=== PATIENT | female | born 1950 | race African-American/Black ===

== ENCOUNTER 2023-07-12 17:21 | Inpatient (IN) | payer OTHER ==
[~2023-07-12] VITALS: Ht 165.1 cm; Wt 70.8 kg
[2023-07-12 17:45] VITALS: PULSE 103; RESP 32; O2SAT 91
[2023-07-12] MEDS ORDERED: IPRATROPIUM BROM 0.5 MG/2.5ML INH SOL NEB ONE ×2 (18:00→18:30)
[2023-07-12] MEDS ORDERED: ALBUTEROL SULF 2.5 MG/0.5ML(0.5%) NEB SOLN NEB ONE ×3 (18:00→21:00)
[2023-07-12 18:12] LABS: Eosinophils # (auto) 0 10 ^3/uL (0-0.8); Hemoglobin 13.5 g/dL (12.2-16.2); Neutrophils # (auto) 8.7 10 ^3/uL (1.6-8.6)
[2023-07-12 18:15] LABS: Basophils # (auto) 0.1 10 ^3/uL (0-0.2); Eosinophils % (auto) 0.2 % (0.0-7.0); Hematocrit 43.5 % (36.0-46.0); Lymphocytes # (auto) 1.2 10 ^3/uL (0.4-5.4); Lymphocytes % (auto) 11.3 % (10.0-50.0); Mean Corpuscular Hemoglobin 22.8 pg (28.0-32.0); Mean Corpuscular Hgb Conc. 31.1 g/dL (32.0-36.0); Mean Corpuscular Volume 73.5 fL (80.0-100.0); Monocytes # (auto) 0.5 10 ^3/uL (0-1.3); Monocytes % (auto) 5.1 % (0.0-12.0); Neutrophils % (auto) 82.4 % (37.0-80.0); Nucleated Red Blood Cells % 0.9 %; Red Blood Cells 5.92 10^6/uL (4.0-5.20); Red Cell Distribution Width 19.4 % (11.8-14.3); White Blood Cell 10.5 10^3/uL (4.4-10.8)
[2023-07-12 18:29] LABS: Alanine Aminotransferase 61 U/L (7-40); Albumin 5.1 g/dL (3.2-4.8); Alkaline Phosphatase 130 U/L (46-116); Anion Gap 12 (5-15); Aspartate Aminotransferase 28 U/L (13-40); BUN/Creatinine Ratio 11.4 (10.0-20.0); Blood Urea Nitrogen 21 mg/dL (9-23); Calcium 9.5 mg/dL (8.7-10.4); Carbon Dioxide 23 mmol/L (20-30); Chloride 107 mmol/L (98-107); Glucose 126 mg/dL (74-106); Magnesium 1.9 mg/dL (1.6-2.6); Potassium 3.7 mmol/L (3.5-5.1); Sodium 142 mmol/L (136-145)
[2023-07-12 18:30] LABS: Bilirubin, Total 0.8 mg/dL (0.2-1.0); Total Protein 7.1 g/dL (5.7-8.2)
[2023-07-12] MEDS ORDERED: cefTRIAXone 1GM/50ML D5W 50 ML IV ONE (18:30)
[2023-07-12] MEDS ORDERED: DexAMETHasone SOD PHOS 10MG/1ML VIAL INJ IV ONE (18:30)
[2023-07-12 18:57] LABS: INR 1.09 (0.9-1.15); Partial Thromboplastin Time 25.6 SEC (24.5-34.5); Prothrombin Time 11.4 sec (9.3-11.8)
[2023-07-12 19:30] VITALS: PULSE 105; RESP 20; O2SAT 93
[2023-07-12] MEDS ORDERED: FUROSEMIDE 40 MG/4 ML VIAL IV ONE (20:45)
[2023-07-12] MEDS ORDERED: ALBUTEROL SULF 2.5 MG/0.5ML(0.5%) NEB SOLN NEB PRN (22:30)
[2023-07-12] MEDS ORDERED: ONDANSETRON HCL 4 MG/2 ML VIAL IV PRN (22:30)
[2023-07-12] MEDS ORDERED: DOCUSATE SOD 100 MG CAP PO PRN (22:30)
[2023-07-12] MEDS ORDERED: IPRATROPIUM BROM 0.5 MG/2.5ML INH SOL NEB PRN (22:30)
[2023-07-12] MEDS ORDERED: ACETAMINOPHEN 325 MG TAB PO PRN (22:30)
[2023-07-12] MEDS ORDERED: NITROGLYCERIN 0.4 MG SL TAB SL PRN (23:30)
[2023-07-12] MEDS ORDERED: MORPHINE SULFATE INJ 2 MG/ml SYRG IV PRN (23:30)
[2023-07-13] VITALS (14 sets, daily range): BP systolic 107–146; BP diastolic 62–99; PULSE 54–111; RESP 16–22; TEMP 95.5–98.7; O2SAT 90–99
[2023-07-13 04:40] LABS: Urine Bacteria NONE SEEN /hpf (None Seen); Urine Blood Negative /uL (Negative); Urine Clarity Clear (Clear); Urine Color Yellow (Yellow); Urine Hyaline Cast FEW /lpf (0 - 2); Urine Protein, UAD Negative (Negative); Urine Specific Gravity 1.011 (1.001-1.035); Urine Urobilinogen Normal (Negative); Urine WBC <1 /hpf (0 - 5)
[2023-07-13] MEDS: SODIUM CHLOR 0.9% PF (SALINE LOCK) 10ML VIAL/SYR IV SCH ×3 (05:30→21:35)
[2023-07-13 07:07] LABS: Basophils # (auto) 0 10 ^3/uL (0-0.2); Basophils % (auto) 0.5 % (0.0-2.0); Eosinophils # (auto) 0 10 ^3/uL (0-0.8); Hematocrit 39.8 % (36.0-46.0); Hemoglobin 12.4 g/dL (12.2-16.2); Lymphocytes # (auto) 0.5 10 ^3/uL (0.4-5.4); Lymphocytes % (auto) 7.6 % (10.0-50.0); Mean Corpuscular Hgb Conc. 31.1 g/dL (32.0-36.0); Monocytes # (auto) 0.2 10 ^3/uL (0-1.3); Monocytes % (auto) 2.2 % (0.0-12.0); Neutrophils # (auto) 6.3 10 ^3/uL (1.6-8.6); Neutrophils % (auto) 89.7 % (37.0-80.0); Nucleated Red Blood Cells % 0.9 %; Red Blood Cells 5.38 10^6/uL (4.0-5.20); Red Cell Distribution Width 18.8 % (11.8-14.3)
[2023-07-13 07:33] LABS: Alanine Aminotransferase 47 U/L (7-40); Albumin 4.5 g/dL (3.2-4.8); Alkaline Phosphatase 110 U/L (46-116); Anion Gap 10 (5-15); Aspartate Aminotransferase 22 U/L (13-40); BUN/Creatinine Ratio 10.7 (10.0-20.0); Blood Urea Nitrogen 21 mg/dL (9-23); Calcium 8.6 mg/dL (8.7-10.4); Carbon Dioxide 25 mmol/L (20-30); Chloride 110 mmol/L (98-107); Glucose 210 mg/dL (74-106); Potassium 3.8 mmol/L (3.5-5.1); Sodium 145 mmol/L (136-145)
[2023-07-13 07:34] LABS: Bilirubin, Total 0.4 mg/dL (0.2-1.0); Total Protein 6.5 g/dL (5.7-8.2)
[2023-07-13] MEDS ORDERED: DexAMETHasone SOD PHOS 10MG/1ML VIAL INJ IV SCH (10:00)
[2023-07-13] MEDS ORDERED: ATORVASTATIN 20 MG TAB PO ONE (11:30)
[2023-07-13] MEDS: CARVEDILOL 3.125 MG TAB PO SCH ×2 (11:37→21:43)
[2023-07-13] MEDS: FUROSEMIDE 40 MG/4 ML VIAL IV SCH (11:37)
[2023-07-13] MEDS: ASPirin 81 mg TAB PO SCH (11:37)
[2023-07-13] MEDS: HYDROcodone-ACET 5/325MG TAB PO PRN ×2 (11:55→21:40)
[2023-07-13] MEDS: IPRATROPIUM BROM 0.5 MG/2.5ML INH SOL NEB SCH ×2 (12:00→19:01)
[2023-07-13] MEDS: ALBUTEROL SULF 2.5 MG/0.5ML(0.5%) NEB SOLN NEB SCH ×2 (12:00→19:02)
[2023-07-13 12:39] LABS: LDL Cholesterol 22 mg/dL (< 100); Triglycerides 44 mg/dL (< 150)
[2023-07-13 12:41] LABS: Cholesterol 90 mg/dL (< 200); HDL Cholesterol 55 mg/dL (40-59)
[2023-07-13 15:01] LABS: COVID19 ANTIGEN SOFIA FIA NEGATIVE (NEGATIVE)
[2023-07-13 15:02] LABS: Rapid Influenza A Negative (Negative); Rapid Influenza B Negative (Negative)
[2023-07-13] MEDS ORDERED: MIRT1TAB38 PO (15:50)
[2023-07-13] MEDS ORDERED: HYDR-4297 PO (15:52)
[2023-07-13] MEDS ORDERED: VENL1TAB97 PO (15:55)
[2023-07-13] MEDS ORDERED: FURO20TA3 PO (16:01)
[2023-07-13] MEDS ORDERED: AMLO1TAB22 PO (16:01)
[2023-07-13] MEDS ORDERED: LEVO88CA3 PO (16:01)
[2023-07-13] MEDS ORDERED: ASPI-498 PO (16:01)
[2023-07-13] MEDS ORDERED: LOSA50TA46 PO (16:01)
[2023-07-13] MEDS ORDERED: BUPR-133 PO (16:01)
[2023-07-13] MEDS ORDERED: ANAS1TAB7 PO (16:01)
[2023-07-13] MEDS ORDERED: ATOR40TA52 PO (16:01)
[2023-07-13] MEDS ORDERED: TIOT1AER IN (16:03)
[2023-07-13] MEDS ORDERED: FLUT50SP (16:03)
[2023-07-13] MEDS: ATORVASTATIN 20 MG TAB PO SCH (21:42)
[2023-07-13] MEDS ORDERED: cefTRIAXone 1GM/50ML D5W 50 ML IV SCH (22:00)
[2023-07-14] VITALS (14 sets, daily range): BP systolic 103–134; BP diastolic 60–86; PULSE 90–108; RESP 16–20; TEMP 97.9–98.3; O2SAT 89–99
[2023-07-14 05:55] LABS: Alanine Aminotransferase 57 U/L (7-40); Albumin 4.2 g/dL (3.2-4.8); Alkaline Phosphatase 101 U/L (46-116); Anion Gap 7 (5-15); Aspartate Aminotransferase 30 U/L (13-40); BUN/Creatinine Ratio 18.6 (10.0-20.0); Blood Urea Nitrogen 27 mg/dL (9-23); Carbon Dioxide 26 mmol/L (20-30); Chloride 109 mmol/L (98-107); Glucose 117 mg/dL (74-106); Potassium 4.1 mmol/L (3.5-5.1); Sodium 142 mmol/L (136-145)
[2023-07-14 05:56] LABS: Bilirubin, Total 0.4 mg/dL (0.2-1.0)
[2023-07-14] MEDS: SODIUM CHLOR 0.9% PF (SALINE LOCK) 10ML VIAL/SYR IV SCH ×3 (06:51→21:27)
[2023-07-14] MEDS: ALBUTEROL SULF 2.5 MG/0.5ML(0.5%) NEB SOLN NEB SCH ×3 (07:34→18:52)
[2023-07-14] MEDS: IPRATROPIUM BROM 0.5 MG/2.5ML INH SOL NEB SCH ×3 (07:34→18:52)
[2023-07-14 08:55] LABS: Basophils # (auto) 0 10 ^3/uL (0-0.2); Eosinophils # (auto) 0 10 ^3/uL (0-0.8); Hemoglobin 11.5 g/dL (12.2-16.2); Monocytes # (auto) 0.7 10 ^3/uL (0-1.3); White Blood Cell 10.4 10^3/uL (4.4-10.8)
[2023-07-14 08:56] LABS: Basophils % (auto) 0.4 % (0.0-2.0); Hematocrit 37.6 % (36.0-46.0); Lymphocytes # (auto) 1.3 10 ^3/uL (0.4-5.4); Lymphocytes % (auto) 12.6 % (10.0-50.0); Mean Corpuscular Hemoglobin 22.7 pg (28.0-32.0); Mean Corpuscular Hgb Conc. 30.7 g/dL (32.0-36.0); Neutrophils # (auto) 8.3 10 ^3/uL (1.6-8.6); Nucleated Red Blood Cells % 1.2 %; Red Blood Cells 5.08 10^6/uL (4.0-5.20); Red Cell Distribution Width 18.9 % (11.8-14.3)
[2023-07-14] MEDS: ASPirin 81 mg TAB PO SCH (09:49)
[2023-07-14] MEDS: HYDROcodone-ACET 5/325MG TAB PO PRN (09:49)
[2023-07-14] MEDS: ALPRAZolam 0.25 MG TAB PO PRN (09:49)
[2023-07-14] MEDS: CARVEDILOL 3.125 MG TAB PO SCH ×2 (09:50→21:25)
[2023-07-14] MEDS: FUROSEMIDE 40 MG/4 ML VIAL IV SCH (09:51)
[2023-07-14 09:55] LABS: Hypochromia Moderate; Platelet Estimate Adequate
[2023-07-14 09:56] LABS: Ovalocytes MODERATE; Tear Drop Cells FEW
[2023-07-14] MEDS: ATORVASTATIN 20 MG TAB PO SCH (21:25)
[2023-07-15] VITALS (15 sets, daily range): BP systolic 108–115; BP diastolic 68–80; PULSE 91–111; RESP 14–24; TEMP 97–98.5; O2SAT 15–98
[2023-07-15] MEDS: SODIUM CHLOR 0.9% PF (SALINE LOCK) 10ML VIAL/SYR IV SCH ×3 (06:12→21:19)
[2023-07-15] MEDS: IPRATROPIUM BROM 0.5 MG/2.5ML INH SOL NEB SCH ×4 (06:17→21:58)
[2023-07-15] MEDS: ALBUTEROL SULF 2.5 MG/0.5ML(0.5%) NEB SOLN NEB SCH ×4 (06:17→21:58)
[2023-07-15] MEDS: FUROSEMIDE 40 MG/4 ML VIAL IV SCH (10:14)
[2023-07-15] MEDS: ASPirin 81 mg TAB PO SCH (10:15)
[2023-07-15] MEDS: CARVEDILOL 3.125 MG TAB PO SCH ×2 (10:15→21:13)
[2023-07-15] MEDS ORDERED: ALBUTEROL SULF 2.5 MG/0.5ML(0.5%) NEB SOLN NEB SCH (11:45)
[2023-07-15] MEDS ORDERED: IPRATROPIUM BROM 0.5 MG/2.5ML INH SOL NEB SCH (11:45)
[2023-07-15 12:52] LABS: Base Excess 3.7 mmol/L (-2.0-2.0)
[2023-07-15 13:51] LABS: Chloride 108 mmol/L (98-107); Potassium 3.8 mmol/L (3.5-5.1); Sodium 144 mmol/L (136-145)
[2023-07-15 13:52] LABS: Anion Gap 4 (5-15); Carbon Dioxide 32 mmol/L (20-30)
[2023-07-15 13:53] LABS: Calcium 8.6 mg/dL (8.7-10.4)
[2023-07-15 13:57] LABS: Glucose 117 mg/dL (74-106)
[2023-07-15 13:58] LABS: BUN/Creatinine Ratio 14.8 (10.0-20.0); Blood Urea Nitrogen 21 mg/dL (9-23)
[2023-07-15] MEDS ORDERED: MAGNESIUM SULFATE 1GM/100ML 100 ML IV ONE (14:00)
[2023-07-15] MEDS: methylPREDNISolone SOD SUCC 40 MG/ML VL IV SCH ×2 (15:00→21:15)
[2023-07-15] MEDS: MAGNESIUM SULFATE 1GM/100ML 100 ML IV SCH ×2 (16:20→18:00)
[2023-07-15] MEDS: ATORVASTATIN 20 MG TAB PO SCH (21:13)
[2023-07-16] VITALS (30 sets, daily range): BP systolic 113–130; BP diastolic 64–91; PULSE 74–115; RESP 9–24; TEMP 97.9–99; O2SAT 76–100
[2023-07-16] MEDS: ALBUTEROL SULF 2.5 MG/0.5ML(0.5%) NEB SOLN NEB SCH ×6 (01:16→22:42)
[2023-07-16] MEDS: IPRATROPIUM BROM 0.5 MG/2.5ML INH SOL NEB SCH ×6 (01:16→22:42)
[2023-07-16] MEDS: SODIUM CHLOR 0.9% PF (SALINE LOCK) 10ML VIAL/SYR IV SCH ×3 (06:14→22:14)
[2023-07-16 06:22] LABS: Eosinophils # (auto) 0 10 ^3/uL (0-0.8); Mean Corpuscular Hemoglobin 22.7 pg (28.0-32.0); Monocytes # (auto) 0.2 10 ^3/uL (0-1.3); Nucleated Red Blood Cells % 0.1 %; Red Cell Distribution Width 19.4 % (11.8-14.3); White Blood Cell 12.5 10^3/uL (4.4-10.8)
[2023-07-16 06:25] LABS: Basophils # (auto) 0.1 10 ^3/uL (0-0.2); Basophils % (auto) 0.5 % (0.0-2.0); Hemoglobin 12.9 g/dL (12.2-16.2); Lymphocytes # (auto) 0.7 10 ^3/uL (0.4-5.4); Lymphocytes % (auto) 5.8 % (10.0-50.0); Mean Corpuscular Hgb Conc. 30.8 g/dL (32.0-36.0); Mean Corpuscular Volume 73.7 fL (80.0-100.0); Monocytes % (auto) 1.9 % (0.0-12.0); Neutrophils # (auto) 11.5 10 ^3/uL (1.6-8.6); Neutrophils % (auto) 91.8 % (37.0-80.0); Red Blood Cells 5.69 10^6/uL (4.0-5.20)
[2023-07-16 06:41] LABS: Anion Gap 5 (5-15); Calcium 8.5 mg/dL (8.7-10.4); Carbon Dioxide 29 mmol/L (20-30); Chloride 108 mmol/L (98-107); Potassium 4.4 mmol/L (3.5-5.1); Sodium 142 mmol/L (136-145)
[2023-07-16 06:47] LABS: BUN/Creatinine Ratio 16.4 (10.0-20.0); Blood Urea Nitrogen 20 mg/dL (9-23); Glucose 145 mg/dL (74-106)
[2023-07-16] MEDS: FUROSEMIDE 40 MG/4 ML VIAL IV SCH ×3 (10:55→18:03)
[2023-07-16] MEDS: ALPRAZolam 0.25 MG TAB PO PRN (10:56)
[2023-07-16] MEDS: ASPirin 81 mg TAB PO SCH (10:56)
[2023-07-16] MEDS: CARVEDILOL 3.125 MG TAB PO SCH ×2 (10:56→22:15)
[2023-07-16] MEDS: methylPREDNISolone SOD SUCC 40 MG/ML VL IV SCH ×2 (10:57→22:14)
[2023-07-16 12:42] LABS: Base Excess 1.1 mmol/L (-2.0-2.0)
[2023-07-16 14:38] LABS: Base Excess 4.1 mmol/L (-2.0-2.0)
[2023-07-16] MEDS: ATORVASTATIN 20 MG TAB PO SCH (22:15)
[2023-07-17] VITALS (24 sets, daily range): BP systolic 112–149; BP diastolic 67–97; PULSE 89–194; RESP 10–22; TEMP 97.6–98.9; O2SAT 88–100
[2023-07-17] MEDS: IPRATROPIUM BROM 0.5 MG/2.5ML INH SOL NEB SCH ×6 (02:51→21:37)
[2023-07-17] MEDS: ALBUTEROL SULF 2.5 MG/0.5ML(0.5%) NEB SOLN NEB SCH ×6 (02:52→21:37)
[2023-07-17] MEDS: FUROSEMIDE 40 MG/4 ML VIAL IV SCH ×2 (06:12→17:31)
[2023-07-17] MEDS: SODIUM CHLOR 0.9% PF (SALINE LOCK) 10ML VIAL/SYR IV SCH ×3 (06:13→21:35)
[2023-07-17 06:48] LABS: Anion Gap 10 (5-15); Carbon Dioxide 27 mmol/L (20-30); Chloride 102 mmol/L (98-107); Potassium 3.9 mmol/L (3.5-5.1); Sodium 139 mmol/L (136-145)
[2023-07-17 06:49] LABS: Calcium 8.2 mg/dL (8.7-10.4)
[2023-07-17 06:52] LABS: Basophils # (auto) 0 10 ^3/uL (0-0.2); Eosinophils # (auto) 0 10 ^3/uL (0-0.8); Mean Corpuscular Hemoglobin 22.6 pg (28.0-32.0)
[2023-07-17 06:54] LABS: BUN/Creatinine Ratio 14.6 (10.0-20.0); Basophils % (auto) 0.1 % (0.0-2.0); Blood Urea Nitrogen 24 mg/dL (9-23); Glucose 344 mg/dL (74-106); Hematocrit 40.6 % (36.0-46.0); Hemoglobin 12.4 g/dL (12.2-16.2); Lymphocytes # (auto) 0.4 10 ^3/uL (0.4-5.4); Lymphocytes % (auto) 3.2 % (10.0-50.0); Mean Corpuscular Hgb Conc. 30.5 g/dL (32.0-36.0); Mean Corpuscular Volume 74.1 fL (80.0-100.0); Monocytes # (auto) 0.3 10 ^3/uL (0-1.3); Monocytes % (auto) 2.3 % (0.0-12.0); Neutrophils # (auto) 13.1 10 ^3/uL (1.6-8.6); Neutrophils % (auto) 94.4 % (37.0-80.0); Red Blood Cells 5.48 10^6/uL (4.0-5.20); Red Cell Distribution Width 18.9 % (11.8-14.3); White Blood Cell 13.9 10^3/uL (4.4-10.8)
[2023-07-17 07:51] LABS: Platelet Estimate Adequate
[2023-07-17 07:52] LABS: Hypochromia Moderate
[2023-07-17 08:36] LABS: Base Excess 5.3 mmol/L (-2.0-2.0)
[2023-07-17] MEDS: ASPirin 81 mg TAB PO SCH (09:39)
[2023-07-17] MEDS: methylPREDNISolone SOD SUCC 40 MG/ML VL IV SCH ×2 (09:39→21:34)
[2023-07-17] MEDS: CARVEDILOL 3.125 MG TAB PO SCH ×2 (09:40→21:35)
[2023-07-17] MEDS: DOXYCYCLINE 100MG/250ML 250 ML IV SCH (14:00)
[2023-07-17] MEDS: ALPRAZolam 0.25 MG TAB PO PRN (15:39)
[2023-07-17] MEDS ORDERED: DEXTROSE (50%) 50ML SYRG IV PRN (17:30)
[2023-07-17] MEDS: ATORVASTATIN 20 MG TAB PO SCH (21:35)
[2023-07-17] MEDS: ACCU-CHEK COMFORT CURVE STRIP VI SCH (21:36)
[2023-07-17] MEDS: InsuLIN REG 1unit/0.01ml Soln (100units/ml) SC SCH (21:43)
[2023-07-18] VITALS (16 sets, daily range): BP systolic 113–138; BP diastolic 61–102; PULSE 78–115; RESP 12–21; TEMP 97–98.1; O2SAT 89–99
[2023-07-18] MEDS: DOXYCYCLINE 100MG/250ML 250 ML IV SCH ×2 (01:55→13:48)
[2023-07-18] MEDS: ALBUTEROL SULF 2.5 MG/0.5ML(0.5%) NEB SOLN NEB SCH ×6 (01:59→21:50)
[2023-07-18] MEDS: IPRATROPIUM BROM 0.5 MG/2.5ML INH SOL NEB SCH ×6 (01:59→21:50)
[2023-07-18 05:08] LABS: Basophils # (auto) 0.1 10 ^3/uL (0-0.2); Eosinophils # (auto) 0 10 ^3/uL (0-0.8); Hemoglobin 12.6 g/dL (12.2-16.2); Monocytes # (auto) 0.6 10 ^3/uL (0-1.3); Monocytes % (auto) 3.9 % (0.0-12.0); Nucleated Red Blood Cells % 0.1 %; White Blood Cell 14.6 10^3/uL (4.4-10.8)
[2023-07-18 05:09] LABS: Basophils % (auto) 0.5 % (0.0-2.0); Hematocrit 40.3 % (36.0-46.0); Lymphocytes # (auto) 0.5 10 ^3/uL (0.4-5.4); Lymphocytes % (auto) 3.4 % (10.0-50.0); Mean Corpuscular Hemoglobin 22.7 pg (28.0-32.0); Mean Corpuscular Hgb Conc. 31.2 g/dL (32.0-36.0); Mean Corpuscular Volume 72.8 fL (80.0-100.0); Neutrophils # (auto) 13.4 10 ^3/uL (1.6-8.6); Neutrophils % (auto) 92.2 % (37.0-80.0); Red Blood Cells 5.54 10^6/uL (4.0-5.20); Red Cell Distribution Width 19.4 % (11.8-14.3)
[2023-07-18 05:16] LABS: Chloride 104 mmol/L (98-107); Potassium 3.9 mmol/L (3.5-5.1); Sodium 140 mmol/L (136-145)
[2023-07-18 05:17] LABS: Anion Gap 7 (5-15); Calcium 8.4 mg/dL (8.5-10.1); Carbon Dioxide 29 mmol/L (20-30)
[2023-07-18 05:22] LABS: BUN/Creatinine Ratio 23.6 (10.0-20.0); Blood Urea Nitrogen 29 mg/dL (9-23); Glucose 187 mg/dL (74-106)
[2023-07-18] MEDS: FUROSEMIDE 40 MG/4 ML VIAL IV SCH (06:05)
[2023-07-18] MEDS: SODIUM CHLOR 0.9% PF (SALINE LOCK) 10ML VIAL/SYR IV SCH ×3 (06:06→22:23)
[2023-07-18] MEDS: InsuLIN REG 1unit/0.01ml Soln (100units/ml) SC SCH ×4 (06:19→22:28)
[2023-07-18] MEDS: ACCU-CHEK COMFORT CURVE STRIP VI SCH ×4 (06:20→22:18)
[2023-07-18 08:57] LABS: Platelet Estimate Adequate
[2023-07-18] MEDS: methylPREDNISolone SOD SUCC 40 MG/ML VL IV SCH (09:41)
[2023-07-18] MEDS: ASPirin 81 mg TAB PO SCH (09:41)
[2023-07-18] MEDS: CARVEDILOL 3.125 MG TAB PO SCH ×2 (09:42→22:23)
[2023-07-18] MEDS: ALPRAZolam 0.25 MG TAB PO PRN (13:12)
[2023-07-18] MEDS ORDERED: SALINE 0.65 % NASAL SPRAY 45ML BOTTLE EACHNOSTRI ONE (15:45)
[2023-07-18] MEDS ORDERED: LORazepam 2MG/ML-1ML VIAL IV ONE (15:45)
[2023-07-18] MEDS: ATORVASTATIN 20 MG TAB PO SCH (22:23)
[2023-07-18] MEDS: SALINE 0.65 % NASAL SPRAY 45ML BOTTLE EACHNOSTRI SCH (22:24)
[2023-07-19] VITALS (21 sets, daily range): BP systolic 94–126; BP diastolic 54–84; PULSE 81–106; RESP 14–20; TEMP 97.3–98.1; O2SAT 91–100
[2023-07-19] MEDS: DOXYCYCLINE 100MG/250ML 250 ML IV SCH ×2 (02:05→15:41)
[2023-07-19] MEDS: ALBUTEROL SULF 2.5 MG/0.5ML(0.5%) NEB SOLN NEB SCH ×6 (02:13→22:08)
[2023-07-19] MEDS: IPRATROPIUM BROM 0.5 MG/2.5ML INH SOL NEB SCH ×6 (02:13→22:08)
[2023-07-19] MEDS: FUROSEMIDE 40 MG/4 ML VIAL IV SCH ×2 (06:50→18:00)
[2023-07-19] MEDS: ACCU-CHEK COMFORT CURVE STRIP VI SCH ×4 (06:51→22:38)
[2023-07-19] MEDS: SODIUM CHLOR 0.9% PF (SALINE LOCK) 10ML VIAL/SYR IV SCH ×3 (06:51→22:38)
[2023-07-19] MEDS: SALINE 0.65 % NASAL SPRAY 45ML BOTTLE EACHNOSTRI SCH ×4 (06:52→22:40)
[2023-07-19] MEDS: InsuLIN REG 1unit/0.01ml Soln (100units/ml) SC SCH ×4 (06:54→22:52)
[2023-07-19] MEDS ORDERED: methylPREDNISolone SOD SUCC 40 MG/ML VL IV SCH (07:00)
[2023-07-19 09:02] LABS: Hematocrit 46.3 % (36.0-46.0); Hemoglobin 14.2 g/dL (12.2-16.2); Mean Corpuscular Hemoglobin 22.6 pg (28.0-32.0); Mean Corpuscular Hgb Conc. 30.7 g/dL (32.0-36.0); Mean Corpuscular Volume 73.5 fL (80.0-100.0); Red Cell Distribution Width 19.9 % (11.8-14.3); White Blood Cell 18.9 10^3/uL (4.4-10.8)
[2023-07-19 09:06] LABS: Band Neutrophils % (manual) 0
[2023-07-19 09:07] LABS: Basophils % (manual) 0 (0.0-2.0); Blast Cells 0; Eosinophils % (manual) 0 (0-7); Metamyelocytes % 0; Myelocytes % 0; Promyelocytes % 0; Reactive Lymphocytes 0
[2023-07-19 09:08] LABS: Basophils # (auto) 0.1 10 ^3/uL (0-0.2); Basophils % (auto) 0.3 % (0.0-2.0); Eosinophils # (auto) 0 10 ^3/uL (0-0.8); Lymphocytes # (auto) 1.2 10 ^3/uL (0.4-5.4); Lymphocytes % (auto) 6.3 % (10.0-50.0); Monocytes # (auto) 1.5 10 ^3/uL (0-1.3); Monocytes % (auto) 8.1 % (0.0-12.0); Neutrophils # (auto) 16.2 10 ^3/uL (1.6-8.6); Neutrophils % (auto) 85.3 % (37.0-80.0)
[2023-07-19 09:12] LABS: Chloride 101 mmol/L (98-107); Potassium 3.6 mmol/L (3.5-5.1); Sodium 139 mmol/L (136-145)
[2023-07-19 09:13] LABS: Anion Gap 7 (5-15); Carbon Dioxide 31 mmol/L (20-30)
[2023-07-19 09:18] LABS: Blood Urea Nitrogen 24 mg/dL (9-23); Glucose 185 mg/dL (74-106)
[2023-07-19] MEDS: CARVEDILOL 3.125 MG TAB PO SCH ×2 (10:04→22:39)
[2023-07-19 10:05] LABS: Lymphocytes % (manual) 7 (10.0-50.0); Monocytes % (manual) 5 (0-12); Platelet Estimate Adequate
[2023-07-19] MEDS: ASPirin 81 mg TAB PO SCH (10:05)
[2023-07-19] MEDS: ALPRAZolam 0.25 MG TAB PO PRN (10:05)
[2023-07-19] MEDS: LORazepam 2MG/ML-1ML VIAL IV PRN ×2 (15:29→23:30)
[2023-07-19 15:58] LABS: Urine Bacteria FEW /hpf (None Seen); Urine Blood 2+ /uL (Negative); Urine Clarity Clear (Clear); Urine Color Yellow (Yellow); Urine Protein, UAD Negative (Negative); Urine Specific Gravity 1.015 (1.001-1.035); Urine Urobilinogen Normal (Negative); Urine WBC 1 /hpf (0 - 5)
[2023-07-19] MEDS: ATORVASTATIN 20 MG TAB PO SCH (22:38)
[2023-07-20] VITALS (19 sets, daily range): BP systolic 110–141; BP diastolic 68–88; PULSE 81–125; RESP 15–26; TEMP 97.5–98.2; O2SAT 82–100
[2023-07-20] MEDS: IPRATROPIUM BROM 0.5 MG/2.5ML INH SOL NEB SCH ×6 (01:53→22:47)
[2023-07-20] MEDS: ALBUTEROL SULF 2.5 MG/0.5ML(0.5%) NEB SOLN NEB SCH ×6 (01:53→22:47)
[2023-07-20] MEDS: DOXYCYCLINE 100MG/250ML 250 ML IV SCH ×2 (02:36→14:30)
[2023-07-20 05:00] LABS: Basophils # (auto) 0.1 10 ^3/uL (0-0.2); Basophils % (auto) 0.6 % (0.0-2.0); Eosinophils # (auto) 0 10 ^3/uL (0-0.8); Eosinophils % (auto) 0.1 % (0.0-7.0); Hematocrit 40.1 % (36.0-46.0); Hemoglobin 12.3 g/dL (12.2-16.2); Lymphocytes # (auto) 1.3 10 ^3/uL (0.4-5.4); Lymphocytes % (auto) 9.6 % (10.0-50.0); Mean Corpuscular Hemoglobin 22.3 pg (28.0-32.0); Mean Corpuscular Hgb Conc. 30.6 g/dL (32.0-36.0); Mean Corpuscular Volume 73.1 fL (80.0-100.0); Monocytes # (auto) 1.4 10 ^3/uL (0-1.3); Monocytes % (auto) 9.7 % (0.0-12.0); Neutrophils # (auto) 11.2 10 ^3/uL (1.6-8.6); Red Blood Cells 5.49 10^6/uL (4.0-5.20); Red Cell Distribution Width 18.7 % (11.8-14.3)
[2023-07-20 05:07] LABS: Chloride 101 mmol/L (98-107); Potassium 3.8 mmol/L (3.5-5.1); Sodium 138 mmol/L (136-145)
[2023-07-20 05:08] LABS: Anion Gap 4 (5-15); Carbon Dioxide 33 mmol/L (20-30)
[2023-07-20 05:13] LABS: Blood Urea Nitrogen 26 mg/dL (9-23); Glucose 140 mg/dL (74-106)
[2023-07-20] MEDS: FUROSEMIDE 40 MG/4 ML VIAL IV SCH ×2 (06:34→18:27)
[2023-07-20] MEDS: ACCU-CHEK COMFORT CURVE STRIP VI SCH ×4 (06:35→22:17)
[2023-07-20] MEDS: SALINE 0.65 % NASAL SPRAY 45ML BOTTLE EACHNOSTRI SCH ×4 (06:35→20:28)
[2023-07-20] MEDS: InsuLIN REG 1unit/0.01ml Soln (100units/ml) SC SCH ×4 (06:35→22:20)
[2023-07-20] MEDS: SODIUM CHLOR 0.9% PF (SALINE LOCK) 10ML VIAL/SYR IV SCH ×3 (06:35→20:27)
[2023-07-20] MEDS: ASPirin 81 mg TAB PO SCH (10:01)
[2023-07-20] MEDS: CARVEDILOL 3.125 MG TAB PO SCH ×2 (10:03→20:28)
[2023-07-20] MEDS: predniSONE 20 MG TAB PO SCH (10:03)
[2023-07-20] MEDS: LORazepam 2MG/ML-1ML VIAL IV PRN ×2 (11:23→21:35)
[2023-07-20] MEDS ORDERED: PANTOPRAZOLE 40 MG/10 ML VIAL INJ IV ONE (12:15)
[2023-07-20] MEDS: ATORVASTATIN 20 MG TAB PO SCH (20:27)
[2023-07-21] VITALS (14 sets, daily range): BP systolic 111–138; BP diastolic 55–90; PULSE 82–107; RESP 14–21; TEMP 36.4; O2SAT 90–100
[2023-07-21] MEDS: DOXYCYCLINE 100MG/250ML 250 ML IV SCH ×2 (01:43→14:08)
[2023-07-21] MEDS: ALBUTEROL SULF 2.5 MG/0.5ML(0.5%) NEB SOLN NEB SCH ×4 (02:46→14:00)
[2023-07-21] MEDS: IPRATROPIUM BROM 0.5 MG/2.5ML INH SOL NEB SCH ×4 (02:47→14:00)
[2023-07-21] MEDS: ACCU-CHEK COMFORT CURVE STRIP VI SCH ×2 (05:14→11:42)
[2023-07-21] MEDS: SALINE 0.65 % NASAL SPRAY 45ML BOTTLE EACHNOSTRI SCH ×2 (05:16→11:41)
[2023-07-21] MEDS: FUROSEMIDE 40 MG/4 ML VIAL IV SCH (05:16)
[2023-07-21] MEDS: InsuLIN REG 1unit/0.01ml Soln (100units/ml) SC SCH ×2 (05:16→11:30)
[2023-07-21] MEDS: SODIUM CHLOR 0.9% PF (SALINE LOCK) 10ML VIAL/SYR IV SCH ×2 (05:16→14:08)
[2023-07-21] MEDS ORDERED: PANTOPRAZOLE 40 MG/10 ML VIAL INJ IV SCH (10:00)
[2023-07-21] MEDS: ASPirin 81 mg TAB PO SCH (10:41)
[2023-07-21] MEDS: CARVEDILOL 3.125 MG TAB PO SCH (10:41)
[2023-07-21] MEDS: predniSONE 20 MG TAB PO SCH (10:42)
[2023-07-22] MEDS ORDERED: predniSONE 20 MG TAB PO SCH (10:00)
[2023-07-22] MEDS ORDERED: PANTOPRAZOLE 40 MG TAB PO SCH (10:00)
== END 2023-07-21 16:35 | disposition short-term general hospital (02) | DRG 291 ==
LOC: ER 17:21 → TELE 23:21 → TELE-WESTW 07-13 04:14 → DOU IN ICU 07-16 12:30 → UNDODISIN 07-21 16:35
PROVIDERS: ADMIT Internal Medicine; ATTEND Internal Medicine
PROC: 5A0945A Assistance with Respiratory Ventilation, 24-96 Consecutive Hours, High Flow/Velocity Cannula (ICD-10-PCS; principal; 2023-07-17)
DX: I13.0 Hypertensive heart and chronic kidney disease with heart failure and stage 1 through stage 4 chronic kidney disease, or unspecified chronic kidney disease (principal); I50.43 Acute on chronic combined systolic (congestive) and diastolic (congestive) heart failure; J96.01 Acute respiratory failure with hypoxia; N17.0 Acute kidney failure with tubular necrosis; J44.1 Chronic obstructive pulmonary disease with (acute) exacerbation; I25.10 Atherosclerotic heart disease of native coronary artery without angina pectoris; R73.03 Prediabetes; N18.9 Chronic kidney disease, unspecified; Z20.822 Contact with and (suspected) exposure to COVID-19; I27.81 Cor pulmonale (chronic); E07.9 Disorder of thyroid, unspecified; R26.81 Unsteadiness on feet; F41.9 Anxiety disorder, unspecified; E78.5 Hyperlipidemia, unspecified; R73.9 Hyperglycemia, unspecified; R10.13 Epigastric pain; Z82.49 Family history of ischemic heart disease and other diseases of the circulatory system; I25.2 Old myocardial infarction; Z87.891 Personal history of nicotine dependence
CPT/HCPCS: 36415; 36600; 71045; 76775; 80048; 80053; 80061; 81001; 82805; 82962; 83036; 83605; 83735; 83880; 84439; 84443; 84484; 85007; 85025; 85027; 85610; 85730; 87040; 87081; 87426; 87804; 93005; 93306; 94640; 94667; 94668; 97110; 97116; 97163; 97530; C9113; G0378; J0696; J1100; J3490